=== PATIENT | female | born 1960 | race Caucasian/White ===

== ENCOUNTER → 2019-06-25 | Outpatient (CLI) | payer BC ==
[2016-06-22 17:04] VITALS: BP 142/64
[~2019-06-25] MED LIST: ASPI-630 PO; CALC600T4 PO; DIPH25CA58 PO; LISI-338 PO; MAGN84TA PO; NITR0.4T22 SL; PYRI100T PO
--- NOTE | 2019-06-25 16:01 | RAD ---
3 views of the right wrist without comparison for wrist pain. FINDINGS: There is no fracture, dislocation, or acute osseous abnormality identified. There is a well-corticated ovoid ossific density adjacent to the ulnar styloid process, which may represent a small accessory ossicle or sequelae of distant healed trauma. Only mild degenerative changes are seen involving the first metatarsophalangeal joint. IMPRESSION: 1. No acute osseous abnormality. Electronically signed by: Vincent Ma MD (06/25/2019 3:58 PM) [facility]
== END | disposition home or self-care (01) ==
LOC: DXRAD 09:06
PROVIDERS: ATTEND Physician Assistant Medical
DX: M19.031 Primary osteoarthritis, right wrist (principal)
CPT/HCPCS: 73110